=== PATIENT | male | born 1955 | race African-American/Black ===

== ENCOUNTER 2021-07-17 14:24 | Observation (INO) ==
[2021-07-17 15:55] LABS: Basophils % 0.3 % (0.0-0.8); Eosinophils % 1.1 % (0.00-10.9); Hematocrit 43.6 VOL% (42.0-52.0); Hemoglobin 13.6 GM/DL (14.0-18.0); Immature Granulocytes % 0.3 %; Immature Granulocytes Absolute 0.01 #; Lymphocytes # 2.2 10*3/uL (1.4-4.0); Lymphocytes % 63.1 % (21.2-54.2); Mean Corpuscular HGB Conc 31.2 GM/DL (32-36); Mean Corpuscular Volume 96.2 FL (87-102); Mean Platelet Volume 11.4 FL (9.6-12.0); Monocytes % 7.3 % (1.7-12.7); Neutrophils % 27.9 % (38.7-73.9); Platelet Count 198 T/CUMM (130-400); Red Blood Count 4.53 MC/CUMM (3.8-5.5); White Blood Count 3.6 T/CUMM (4-12)
[2021-07-17 16:05] LABS: INR 1.1; PT Patient Result 11.9 SECS (10.5-12.0); Partial Thromboplastin Time 29.3 SECS (23.8-32.1)
[2021-07-17 16:23] LABS: Eosinophils 1 % (0-10); Lymphocytes 68 % (20-55); Segmented Neutrophils 24 % (50-85); Total Cells Counted 100
[2021-07-17 16:25] LABS: Albumin 4.1 G/DL (3.4-5.0); Bilirubin,Total 0.7 MG/DL (0.20-1.00); Calcium 9.3 MG/DL (8.5-10.1); Platelet Estimate Adequate; Total Protein 8.5 G/DL (6.4-8.2)
[2021-07-17 17:13] LABS: Bilirubin,Urine Negative (Negative); Blood, Urine Negative (Negative); Glucose,Urine (UA) Negative (Negative); Ketones,Urine Negative (Negative); Mucus,Urine Occasional /LPF (Occasional); Nitrite,Urine Negative (Negative); Protein,Urine Negative; RBC,Urine 5 /HPF (0-4); Urine Appearance CLEAR (Clear); Urine Color Yellow (Yellow)
[2021-07-17 18:02] LABS: Barbiturates Screen,Urine Negative (Negative); Benzodiazepines Screen,Urine Negative (Negative); Cannabinoid Screen,Urine Negative (Negative); Opiate Screen,Urine Negative (Negative); Phencyclidine Screen,Urine Negative (Negative)
[2021-07-17] MEDS ORDERED: DEXTROSE 50% 25 GM/50 ML VIAL IV PRN (18:31)
[2021-07-17] MEDS ORDERED: GLUCAGON 1 MG VIAL IM PRN (18:31)
[2021-07-17] MEDS ORDERED: amLODIPine 5 MG TABLET PO STA (19:08)
[2021-07-17] MEDS ORDERED: hydrALAZINE 20 MG/1 ML VIAL IV PRN (19:08)
[2021-07-17] MEDS: ENOXAPARIN 40 MG/0.4 ML SYRINGE SUBCUT SCH (19:15)
[2021-07-17] MEDS: INSULIN LISPRO 100 UNIT/ML SUBCUT SCH (21:20)
[2021-07-17] MEDS: LACTULOSE 20 GM/30 ML UDCUP PO SCH (22:08)
[2021-07-18] MEDS: LACTULOSE 20 GM/30 ML UDCUP PO SCH ×6 (02:05→21:05)
[2021-07-18 06:34] LABS: Basophils % 0.3 % (0.0-0.8); Eosinophils % 1.3 % (0.00-10.9); Hematocrit 37.8 VOL% (42.0-52.0); Hemoglobin 11.9 GM/DL (14.0-18.0); Immature Granulocytes % 0.3 %; Immature Granulocytes Absolute 0.01 #; Lymphocytes # 1.9 10*3/uL (1.4-4.0); Lymphocytes % 62.8 % (21.2-54.2); Mean Corpuscular HGB Conc 31.5 GM/DL (32-36); Mean Corpuscular Volume 95.5 FL (87-102); Mean Platelet Volume 11.8 FL (9.6-12.0); Monocytes % 8.2 % (1.7-12.7); Neutrophils % 27.1 % (38.7-73.9); Platelet Count 175 T/CUMM (130-400); Red Blood Count 3.96 MC/CUMM (3.8-5.5); Red Cell Distribution Width 12.1 % (9.3-17.3)
[2021-07-18 07:05] LABS: Eosinophils 2 % (0-10); Lymphocytes 67 % (20-55); Segmented Neutrophils 25 % (50-85); Total Cells Counted 100
[2021-07-18 07:06] LABS: Atypical Lymphocytes Few; Hypochromasia Slight; Microcytosis Slight; Platelet Estimate Adequate
[2021-07-18 07:12] LABS: Bilirubin,Total 1.4 MG/DL (0.20-1.00); Calcium 8.8 MG/DL (8.5-10.1); Potassium 3.9 MMOL/L (3.5-5.1); Thyroid Stimulating Hormone 0.421 uIU/ml (0.358-3.74); Total Protein 6.8 G/DL (6.4-8.2)
[2021-07-18] MEDS ORDERED: MAGNESIUM SULF RIDER 2 GM/50 ML PREMIX IV ONE (07:29)
[2021-07-18] MEDS: OLANZapine 5 MG TABLET PO SCH ×2 (09:33→20:25)
[2021-07-18] MEDS: BENZTROPINE 1 MG TABLET PO SCH (09:33)
[2021-07-18] MEDS: POLYETHYLENE GLYCOL POWDER 17 GM PACK PO SCH (09:34)
[2021-07-18] MEDS: amLODIPine 10 MG TABLET PO SCH (09:34)
[2021-07-18] MEDS: PANTOPRAZOLE 40 MG TABLET PO SCH (09:34)
[2021-07-18] MEDS: PARoxetine 20 MG TABLET PO SCH (09:34)
[2021-07-18] MEDS: INSULIN LISPRO 100 UNIT/ML SUBCUT SCH ×4 (09:39→21:05)
[2021-07-18] MEDS: LINACLOTIDE 145 MCG CAPSULE PO SCH (10:42)
[2021-07-18] MEDS: ENOXAPARIN 40 MG/0.4 ML SYRINGE SUBCUT SCH (18:02)
[2021-07-18] MEDS ORDERED: traZODone 50 MG TABLET PO SCH (21:00)
[2021-07-19] MEDS: LACTULOSE 20 GM/30 ML UDCUP PO SCH ×4 (02:46→14:20)
[2021-07-19 05:03] LABS: Basophils % 0.2 % (0.0-0.8); Eosinophils % 0.7 % (0.00-10.9); Hemoglobin 12.1 GM/DL (14.0-18.0); Lymphocytes # 2.1 10*3/uL (1.4-4.0); Lymphocytes % 50.6 % (21.2-54.2); Mean Corpuscular HGB Conc 31.8 GM/DL (32-36); Mean Platelet Volume 11.4 FL (9.6-12.0); Monocytes % 9.9 % (1.7-12.7); Neutrophils % 38.6 % (38.7-73.9); Platelet Count 169 T/CUMM (130-400); Red Blood Count 3.96 MC/CUMM (3.8-5.5); White Blood Count 4.1 T/CUMM (4-12)
[2021-07-19 05:22] LABS: Calcium 8.7 MG/DL (8.5-10.1); Osmolality,Calculated 273.7 MOS/KG (273-304); Potassium 4.1 MMOL/L (3.5-5.1)
[2021-07-19 05:26] LABS: Lymphocytes 65 % (20-55); Platelet Estimate Adequate; Segmented Neutrophils 26 % (50-85); Total Cells Counted 100
[2021-07-19 05:27] LABS: Atypical Lymphocytes Few; Hypochromasia Slight
[2021-07-19] MEDS: INSULIN LISPRO 100 UNIT/ML SUBCUT SCH ×2 (09:33→13:04)
[2021-07-19] MEDS: POLYETHYLENE GLYCOL POWDER 17 GM PACK PO SCH (09:37)
[2021-07-19] MEDS: LINACLOTIDE 145 MCG CAPSULE PO SCH (09:37)
[2021-07-19] MEDS: OLANZapine 5 MG TABLET PO SCH (09:37)
[2021-07-19] MEDS: BENZTROPINE 1 MG TABLET PO SCH (09:37)
[2021-07-19] MEDS: PANTOPRAZOLE 40 MG TABLET PO SCH (09:37)
[2021-07-19] MEDS: PARoxetine 20 MG TABLET PO SCH (09:40)
[2021-07-19] MEDS: amLODIPine 10 MG TABLET PO SCH (09:40)
[2021-07-19 12:49] VITALS: BP 127/77
== END 2021-07-19 16:08 ==
LOC: EDBD → EDUNIT# → N.ED 14:24 → N.EDINP 14:24 → SUATTDRO 18:31 → N.TELES 20:35
PROVIDERS: ADMIT Internal Medicine; ATTEND Internal Medicine